=== PATIENT | female | born 1980 | race Caucasian/White ===

== ENCOUNTER 2017-01-09 12:45 | Emergency (ER) | payer OTHER ==
--- NOTE | 2017-01-09 13:22 | EDPHY ---
H & P Stated Complaint: miscarriage last wednesday/increasing pain/clots today Time Seen by Provider: 01/09/17 13:07 HPI/ROS: CHIEF COMPLAINT: Continued vaginal bleeding post spontaneous HISTORY OF PRESENT ILLNESS: 36-year-old female SAB 2, had a spontaneous 1 week ago. Was seen by her OBGYN at [facility] in [place] near where she lives primarily. She is in the emergency department via private vehicle complaining of continued vaginal bleeding. No dizziness. No syncope or near syncope. Approximately 1 pad per 1-2 hours. No abdominal pain. No back or flank pain. She was given RhoGAM injection 7 days ago. PRIMARY CARE PROVIDER: in [facility] REVIEW OF SYSTEMS: A ten point review of systems was performed and is negative with the exception of the items mentioned in the HPI PAST MEDICAL & SURGICAL HISTORY: SAB 2 SOCIAL HISTORY: PHYSICAL EXAM (Prior to examination, patient consented to physical exam, hands were washed and my usual and customary physical exam procedures followed) 1) GENERAL: Well-developed, well-nourished, alert and oriented. Appears to be in no acute distress. 2) HEAD: Normocephalic, atraumatic 3) HEENT: Pupils equal, round, reactive to light bilaterally. Sclera anicteric. 4) NECK: Full range of motion, no meningeal signs. 5) LUNGS: Clear auscultation bilaterally, no wheezes, no rhonchi, no retractions. 6) HEART: Regular rate and rhythm, no murmur, no heave, no gallop. 7) ABDOMEN: No guarding, no rebound, no focal tenderness, negative McBurney's, negative Paz's, negative Rovsing's, negative peritoneal sign, Unable to elicit any abdominal pain 8) MUSCULOSKELETAL: Moving all extremities, no focal areas of tenderness, no obvious trauma. No peripheral edema or discoloration. 9) BACK: No CVA tenderness. 10) SKIN: No rash, no petechiae. 11) PELVIC (with female nurse Farida at bedside): Normal female external genitalia, no lesions visualized. Speculum examination reveals also closed, mild amount of old old blood in vaginal vault., DIFFERENTIAL DIAGNOSIS: [in no particular include but limited to retained products of conception, endometriosis, spontaneous - Personal History LMP (Females 10-55): Now Current Tetanus/Diphtheria Vaccine: Yes - Medical/Surgical History Hx Asthma: No Hx Chronic Respiratory Disease: No Hx Diabetes: No Hx Cardiac Disease: No Hx Renal Disease: No Hx Cirrhosis: No Hx Alcoholism: No Hx HIV/AIDS: No Hx Splenectomy or Spleen Trauma: No Other PMH: denies - Social History Smoking Status: Never smoked Constitutional: Initial Vital Signs Temperature (C) 36.8 C 01/09/17 12:57 Heart Rate 66 01/09/17 12:57 Respiratory Rate 20 01/09/17 12:57 Blood Pressure 122/67 H 01/09/17 12:57 O2 Sat (%) 99 01/09/17 12:57 O2 Delivery Mode Room Air Allergies/Adverse Reactions: No Known Allergies Allergy (Unverified 01/09/17 12:56) Home Medications: Medication Instructions Recorded Vicodin 5-300 mg Tablet 01/09/17 Medical Decision Making - Diagnostics Imaging Results: Imaging Impressions Pelvic/Renal Ultrasound 01/09/17 13:20 Impression: Evidence of demise with an irregular gestational sac in the cervical canal measuring 1.9 cm with a yolk sac and no pole. Probable hemorrhage or less likely retained products of conception in the endometrial cavity toward the fundus. Results called and discussed with Waqas Gonzalez PA-C, on January 09, 2017 at 1447 hours. ED Course/Re-evaluation: Patient was re-evaluated with serial exams most recently at 3:45 p.m.. She appears comfortable, she is smiling, no guarding of abdomen. Case discussed with secondary supervising physician Dr. Flo Chang in the emergency department. Phone consultation with Dr. Rose Woody at 3:32 p.m.. The patient prefers to have any further interventions performed at her primary home in [place] with her auditing specialist there. Dr. Rose Woody and I discussed options including 1) dilatation and curettage today, 2) misoprostol, 3) observation. As the patient is hemodynamically stable , normal H&H, no active vaginal bleeding, and as patient prefers to return to [place] for further care , Dr. Woody and I think that this is a reasonable plan. However, patient, and I had a lengthy discussion about the importance of strict return precautions, returning to the ER immediately if she develops dizziness, worsening pain, worsening bleeding or any other symptoms that concern her. Otherwise contact her OBGYN in [place] but brings today (Wednesday) and follow up on Wednesday. Patient has been given copies of her laboratory studies and ultrasonography. She feels comfortable being discharged. I believe her to have decision-making capacity. - Data Points Laboratory Results: Laboratory Results 01/09/17 13:39 01/09/17 13:39 01/09/17 01/09/17 01/09/17 13:39 13:39 13:38 WBC 5.97 10^3/uL 10^3/uL (3.80-9.50) RBC 4.18 10^6/uL 10^6/uL (4.18-5.33) Hgb 12.7 g/dL g/dL (12.6-16.3) Hct 37.0 % L % (38.0-47.0) MCV 88.5 fL fL (81.5-99.8) MCH 30.4 pg pg (27.9-34.1) MCHC 34.3 g/dL g/dL (32.4-36.7) RDW 12.1 % % (11.5-15.2) Plt Count 271 10^3/uL 10^3/uL (150-400) MPV 10.1 fL fL (8.7-11.7) Neut % (Auto) 65.2 % % (39.3-74.2) Lymph % (Auto) 24.0 % % (15.0-45.0) [place] % (Auto) 7.7 % % (4.5-13.0) Eos % (Auto) 2.2 % % (0.6-7.6) Baso % (Auto) 0.7 % % (0.3-1.7) Nucleat RBC Rel Count 0.0 % % (0.0-0.2) Absolute Neuts (auto) 3.90 10^3/uL 10^3/uL (1.70-6.50) Absolute Lymphs (auto) 1.43 10^3/uL 10^3/uL (1.00-3.00) Absolute Monos (auto) 0.46 10^3/uL 10^3/uL (0.30-0.80) Absolute Eos (auto) 0.13 10^3/uL 10^3/uL (0.03-0.40) Absolute Basos (auto) 0.04 10^3/uL 10^3/uL (0.02-0.10) Absolute Nucleated RBC 0.00 10^3/uL 10^3/uL (0-0.01) Immature Gran % 0.2 % % (0.0-1.1) Immature Gran # 0.01 10^3/uL 10^3/uL (0.00-0.10) Sodium 142 mEq/L mEq/L (134-144) Potassium 3.6 mEq/L mEq/L (3.5-5.2) Chloride 105 mEq/L mEq/L (97-110) Carbon Dioxide 23 mEq/l mEq/l (22-31) Anion Gap 14 mEq/L mEq/L (8-16) BUN 9 mg/dL mg/dL (7-23) Creatinine 0.7 mg/dL mg/dL (0.6-1.0) Estimated GFR > 60 Glucose 111 mg/dL H mg/dL (70-100) Calcium 10.2 mg/dL mg/dL (8.5-10.4) Beta HCG, Quant 33890.00 mIU/mL H mIU/mL (0-4.83) Urine Color YELLOW Urine Appearance CLEAR Urine pH 7.0 (5.0-7.5) Ur Specific Edinburgh 1.004 (1.002-1.030) Urine Protein NEGATIVE (NEGATIVE) Urine Ketones NEGATIVE (NEGATIVE) Urine Blood 3+ H (NEGATIVE) Urine Nitrate NEGATIVE (NEGATIVE) Urine Bilirubin NEGATIVE (NEGATIVE) Urine Urobilinogen NEGATIVE EU EU (0.2-1.0) Ur Leukocyte Esterase NEGATIVE (NEGATIVE) Urine RBC 10-15 /hpf H /hpf (0-3) Urine WBC 1-3 /hpf /hpf (0-3) Ur Epithelial Cells TRACE /lpf /lpf (NONE-1+) Urine Bacteria TRACE /hpf H /hpf (NONE SEEN) Urine Glucose NEGATIVE (NEGATIVE) Departure - Departure Disposition: Home, Routine, Self-Care Clinical Impression: Retained products of conception Condition: Good Instructions: Miscarriage (ED) Additional Instructions: Return to the closest emergency department immediately if you developed worsening vaginal bleeding, if you develop dizziness, if you develop nausea or vomiting, if you develop faint feeling, if you develop abdominal pain or cramping, or any other symptoms that concern you. Referrals: Call, your OBGYN today to be seen on Wednesday [Other] - As per Instructions
[2017-01-09 13:42] LABS: % IMMATURE GRANULYOCYTES 0.2 % (0.0-1.1); ABSOLUTE IMMATURE GRANULOCYTES 0.01 10^3/uL (0.00-0.10); ADD DIFF? NO; ADD MORPH? NO; ADD SCAN? NO; ATYPICAL LYMPHOCYTE FLAG 30 (0-99); FRAGMENT RBC FLAG 0 (0-99); HEMOGLOBIN 12.7 g/dL (12.6-16.3); LEFT SHIFT FLG 0 (0-99); LIPEMIA HEMOLYSIS FLAG 90 (0-99); MEAN CELL HEMOGLOBIN 30.4 pg (27.9-34.1); MEAN CELL HEMOGLOBIN CONCENTR. 34.3 g/dL (32.4-36.7); MEAN CELL VOLUME 88.5 fL (81.5-99.8); MEAN PLATELET VOLUME 10.1 fL (8.7-11.7); PLATELET CLUMPS FLAG 0 (0-99); PLATELET COUNT 271 10^3/uL (150-400); RED BLOOD CELL COUNT 4.18 10^6/uL (4.18-5.33); RED CELL DISTRIBUTION WIDTH 12.1 % (11.5-15.2)
[2017-01-09 13:55] LABS: ANION GAP 14 mEq/L (8-16); CALCIUM 10.2 mg/dL (8.5-10.4); CARBON DIOXIDE 23 mEq/l (22-31); CHLORIDE 105 mEq/L (97-110); CREATININE 0.7 mg/dL (0.6-1.0); GLOMERULAR FILTRATION RATE > 60; GLUCOSE 111 mg/dL (70-100); POTASSIUM 3.6 mEq/L (3.5-5.2); SODIUM 142 mEq/L (134-144)
[2017-01-09 14:10] LABS: COLOR YELLOW; LEUKOCYTE ESTERASE,URINE NEGATIVE (NEGATIVE); NITRITE,URINE NEGATIVE (NEGATIVE)
[2017-01-09 14:12] LABS: BACTERIA TRACE /hpf (NONE SEEN)
[2017-01-09 16:12] VITALS: PULSE 71; RESP 16; TEMP 97.5; O2SAT 97
[2017-01-09 16:15] VITALS: BP 110/60
== END 2017-01-09 16:15 | disposition home or self-care (01) ==
DX: O03.4 Incomplete spontaneous abortion without complication (principal)

== ENCOUNTER 2018-01-28 06:22 | Day surgery (SDC) | payer OTHER ==
--- NOTE | 2018-01-28 07:01 | PDANEPAE ---
ANE History of Present Illness 8 wk missed Ab ANE Past Medical History Past Medical History: hypothyroid, celiac dz - Pulmonary History Hx Oxygen in Use at Home: No Hx Sleep Apnea: No Sleep Apnea Screening Result - Last Documented: Negative - Endocrine History Hx Diabetes: No - Chronic Pain History Chronic Pain: Yes (MILD FROM CELIACS) ANE Review of Systems Review of Systems: hypothyroid, celiac dz ANE Patient History - Allergies Allergies/Adverse Reactions: No Known Allergies Allergy (Unverified 01/09/17 12:56) - Home Medications Home Medications: Vicodin 5-300 mg Tablet 01/09/17 [Last Taken Unknown] - NPO status NPO Since - Liquids (Date): 01/28/18 NPO Since - Liquids (Time): 05:30 NPO Since - Solids (Date): 01/27/18 NPO Since - Solids (Time): 18:30 - Anes Hx Anes Hx: no prior problems Hx Anesthesia Complications (with details): breast reduction, dental, colonoscopy all without problems - Smoking Hx Smoking Status: Never smoked - Alcohol Use Alcohol Use: None - Family Anes Hx Family Anes Hx: neg - N/A ANE Labs/Vital Signs - Vital Signs Blood Pressure: 98/74 Heart Rate: 68 Respiratory Rate: 18 Height: 170.18 cm Weight: 58.06 kg ANE Physical Exam - Airway Neck exam: FROM Mallampati Score: Class 2 Mouth exam: normal dental/mouth exam - Pulmonary Pulmonary: no respiratory distress - Cardiovascular Cardiovascular: regular rate and rhythym - ASA Status ASA Status: II ANE Anesthesia Plan Anesthesia Plan: MAC
[2018-01-28] MEDS ORDERED: PROPOFOL/EMULSION 500 MG/50 ML BOTTLE IV ONE (07:05)
[2018-01-28] MEDS ORDERED: fentaNYL 100 MCG/2 ML INJ ONE (07:05)
[2018-01-28] MEDS ORDERED: ONDANSETRON 4 MG/2 ML VIAL ONE (07:05)
[2018-01-28] MEDS ORDERED: MIDAZOLAM 2 MG/2 ML VIAL ONE (07:05)
[2018-01-28] MEDS ORDERED: LIDOCAINE 2% 5 ML SDV ONE (07:06)
--- NOTE | 2018-01-28 07:27 | PDHPUP ---
History & Physical Update H&P update statement: This history and physical update is based on an assessment of the patient which was completed after admission or registration (within 24 hours), but prior to the surgery/procedure. H&P update: H&P reviewed & patient examined, no change in patient's condition since H&P completed
[2018-01-28] MEDS ORDERED: DOXYCYCLINE HYCLATE 100 MG CAP/TAB PO STA (07:30)
[2018-01-28] MEDS ORDERED: MISOPROSTOL 200 MCG TAB ONE (07:37)
[2018-01-28] MEDS ORDERED: LIDO/EPI 2% **for epidural** 20 ML SDV ONE (08:09)
[2018-01-28] MEDS ORDERED: LIDO/EPI 1% **Not for Epidural 20 ML MDV IF ONE (08:30)
[2018-01-28] MEDS ORDERED: DOXYCYCLINE HYCLATE 100 MG CAP/TAB PO ONE (08:40)
--- NOTE | 2018-01-28 08:42 | POSTOPPROG ---
Post Op Note Date of Operation: 01/28/18 Surgeon: Sal Horn
[2018-01-28] MEDS ORDERED: NALOXONE HCL 0.4 MG/ML INJ IVP PRN (08:49)
[2018-01-28] MEDS ORDERED: fentaNYL 100 MCG/2 ML INJ IVP PRN (08:49)
[2018-01-28] MEDS ORDERED: ACETAMINOPHEN 500 MG TAB PO PRN (08:49)
[2018-01-28] MEDS ORDERED: HYDROCODONE/APAP 5/325 TAB PO PRN (08:49)
[2018-01-28] MEDS ORDERED: ONDANSETRON 4 MG/2 ML VIAL IVP PRN (08:49)
[2018-01-28] MEDS ORDERED: PROMETHAZINE HCL 25 MG/ML INJ IVP PRN (08:49)
[2018-01-28] MEDS ORDERED: MEPERIDINE 25 MG/0.5 ML AMP IVP PRN (08:49)
[2018-01-28] MEDS ORDERED: KETOROLAC 30 MG/1 ML SDV IVP PRN (08:50)
--- NOTE | 2018-01-28 08:57 | POSTANESTH ---
Post Anesthetic Evaluation Cardiovascular Status: Normal, Stable Respiratory Status: Normal, Stable Level of Consciousness/Mental Status: Can Participate in Eval, Alert and Oriented Pain Control: Adequate, Prn Tx Ordered Nausea/Vomiting Control: Adequate, Prn Tx Ordered Complications Possibly Related to Anesthesia: None Noted
[2018-01-28 11:06] VITALS: BP 97/52
== END 2018-01-28 11:15 | disposition home or self-care (01) ==
LOC: FOBOP 06:22
PROVIDERS: ATTEND Obstetrics & Gynecology
PROC: 3E0234Z Introduction of Serum, Toxoid and Vaccine into Muscle, Percutaneous Approach (ICD-10-PCS; principal; 2018-01-28)
PROC: 10D17ZZ Extraction of Products of Conception, Retained, Via Natural or Artificial Opening (ICD-10-PCS; principal; 2018-01-28)
DX: O02.1 Missed abortion (principal); N84.0 Polyp of corpus uteri; E03.9 Hypothyroidism, unspecified; K90.0 Celiac disease
CPT/HCPCS: J2250; J2405; J2704; J3010